=== PATIENT | male | born 1990 | race American Indian/Alaskan Native ===

== ENCOUNTER 2024-12-23 14:12 | Outpatient (AMB) | payer MEDICAID, BC, SELFPAY ==
[2024-12-23 14:47] VITALS: BP 122/81; PULSE 79; RESP 16; TEMP 36.6; O2SAT 98; BMI 32.3
--- NOTE | 2024-12-23 14:47 | PD.GSCLVISIT ---
[facility]ital Signs - [facility] 12/23/24 14:47 Height 1.78 m Height Method Measured Weight 102.143 kg Weight Measurement Method Standing Scale BMI 32.3 BP 122/81 Blood Pressure Source Automatic Cuff Blood Pressure Location Left Upper Arm Position Sitting Respiration 16 Pulse 79 Pulse Source Monitor Temp 97.8 F Temp Source Temporal Artery Scan Pulse Oximetry (%) 98 Oxygen Delivery Method Room Air Med/Allergies Allergies & Medications Allergies No Known Allergies Allergy (Verified 12/23/24 14:48) Medication Reconciliation No Known Home Medications 12/23/24 [History Confirmed 12/23/24] MA Intake Visit Data Collection New Patient or Established: Established Patient (seen at [facility] within 3 years) Seen by Clinical Staff ONLY (RN/MA): No Reason for Visit:: LUMP ON NECK Pain Present Currently: No Pain Scale Used: Guevara-Goodman/Numerical Spot Welder Body Assembly Required: No PCP or OBGYN visit in last 3 months: Yes Hx Now: No Do You Feel Safe at Home: Yes Authorities Contacted: N/A Smoking Status Smoking Status: Never smoker Immunization / Flu Flu Vaccine in the Last 12 Months: No Flu Vaccine Exclusion Criteria: No Exclusion Criteria Past Medical History Social History SMOKING STATUS: Smoking status: Never smoker HPI HPI Narrative 34M referred for right neck lesion. Pt reports he has noticed it for years and it has not grown in size but is somewhat bothersome. He has never had any drainage from the area and underwent an US which indicated the lesion was likely a benign cyst PMH: None PSHx: None Meds: None Allergies: NKDA Social hx: Nonsmoker ROS Review of Systems Systems Reviewed: All systems reviewed, normal except as documented Objective/Exam General General Appearance: alert, cooperative and well groomed Neck Neck exam: Present other (at the right lateral neck in the submandibular region there is a palpable, soft and mobile lesion approx 7x7mm, nontender) Resp Respiratory exam: Absent respiratory distress Assessment & Plan Diagnosis / Problem List (1) Sebaceous cyst: Status: Acute Assessment & Plan: 34M presenting with right neck lesion likely a sebaceous cyst which is bothersome. I advised pt I can perform excision in the OR and enumerated risks of bleeding, infection and cyst recurrence. All questions were answered and pt is agreeable with this plan Plan: Excision of right neck cyst in OR Office Procedures GNS Level of Care Nursing/Assessment Patient Status: Established Patient Nursing Assessment/Reassesment: Medication Reconciliation, Update PMH in EMR and Vital Signs Coordination of Care: Complex Care and Chronic Disease 1-5, Education Complex Pt/Fam, Consent,records obtained, informed consent, Results/Orders obtained and Staff clarify orders Established Patient Charge Established Patient Point Assignment: 95 Established Patient Point Charge: EP Level 3 (80-115) Patient Portal Questionaires Social History Tobacco History Smoking Status: Never smoker Domestic Abuse History Do You Feel Safe at Home: Yes Review of Systems Report any current symptoms Only answer those that you have currently: Past Medical History Past Medical History Have you ever been diagnosed with any of the following:
== END 2024-12-23 15:33 | disposition home or self-care (01) ==
PROVIDERS: PCP Family Medicine; Referring Provider Family Medicine; Supervising Provider Surgery; Visit Provider Surgery
DX: L72.3 Sebaceous cyst (principal)
CPT/HCPCS: 99213; G0463

== ENCOUNTER 2025-01-26 05:45 | Day surgery (SDC) | payer BC, MEDICAID, SELFPAY ==
[2025-01-21 07:28] VITALS: BMI 32.2
[2025-01-21 09:01] LABS: INR 1.0 (0.9-1.3); Partial Thromboplastin Time 26.2 Seconds (22.0-36.0); Prothrombin Time 10.6 Seconds (9.0-12.2)
[2025-01-21 09:10] LABS: Anion Gap 10 (7-16); BUN/Creatinine Ratio 11 Ratio (12-20); Blood Urea Nitrogen 13 mg/dL (9-23); Calcium 9.3 mg/dL (8.3-10.6); Carbon Dioxide 27.1 mMol/L (20.0-31.0); Chloride 106 mMol/L (98-107); Creatinine (Component) 1.2 mg/dL (0.6-1.3); Estimated Creatinine Clearance 104.7 mL/min (>60); Glucose 104 mg/dL (74-106); Osmolality,Calculated 285 (275-295); Potassium 4.4 mMol/L (3.4-5.1); Sodium 143 mMol/L (136-145); eGFR > 60 See Note
[2025-01-21 09:23] LABS: Basophils # (Auto) 0.0 Thou/mm3 (0.0-0.2); Basophils % (Auto) 1 % (0-2.5); Eosinophils # (Auto) 0.1 Thou/mm3 (0.0-0.5); Eosinophils % (Auto) 2 % (0-10); Hematocrit 38.8 % (41.0-53.0); Hemoglobin 13.0 g/dL (13.5-16.0); Immature Granulocytes Auto 0.02 Thou/mm3 (0.00-0.00); Lymphocytes # (Auto) 1.5 Thou/mm3 (1.0-4.8); Lymphocytes % (Auto) 25 % (10-50); Mean Corpuscular HGB Conc 33.5 g/dl (31.0-37.0); Mean Corpuscular Hemoglobin 27.5 pg (25.0-35.0); Mean Corpuscular Volume 82 fL (80-100); Monocytes # (Auto) 0.5 Thou/mm3 (0.0-0.8); Monocytes % (Auto) 8 % (0-12); Neutrophils # (Auto) 3.9 Thou/mm3 (1.8-7.7); Neutrophils % (Auto) 65 % (37-80); Nucleated Red Blood Cell # 0.00 Thou/mm3 (0.00-0.00); Nucleated Red Blood Cell % 0 /100 WBC (0); Platelet Count 290 Thou/mm3 (140-440); RDW Standard Deviation 37.9 fL (35.1-43.9); Red Blood Count 4.72 Miln/mm3 (4.50-5.90); White Blood Count 6.0 Thou/mm3 (3.8-10.6)
[2025-01-26 06:00] VITALS: BP 133/93; PULSE 79; RESP 20; TEMP 36.1; O2SAT 99; BMI 31.7
[2025-01-26 08:04] VITALS: BP 129/81; PULSE 74; RESP 20; TEMP 36.2; O2SAT 100
--- NOTE | 2025-01-26 08:04 | SUR.PHASEII ---
0804: Pt. wakes to name then drifts back to sleep, vitals stable, breasthing unlabored, no complaint of pain or nausea, dressing to right side of neck CDI, no active bleed noted, report received from Carlos A DANIELS and Ian GROSS.
[2025-01-26 08:09] VITALS: BP 126/78; PULSE 68; RESP 16; TEMP 36.2; O2SAT 99
--- NOTE | 2025-01-26 08:11 | ESOP_ITS ---
Date of Procedure 01/26/25 Pre Op Diagnosis Right submandibular sebaceous cyst Post Op Diagnosis Same Procedure Excision of right neck submandibular cyst Findings Right neck cyst containing sebum Procedure Description After discussion of risks and benefits, patient was brought to the operating room and received preoperative antibiotics and sedation. He was prepped and draped in the usual sterile fashion. After timeout the planned incision was infiltrated with half percent Marcaine. Anesthesia was confirmed using Adson forceps and incision was made with a #15 blade. There was return of sebaceous material which was thoroughly removed and the capsule of the cyst was removed in a piecemeal fashion. The wound was irrigated and hemostasis was achieved with electrocautery. The wound was closed in 2 layers with 2-0 Vicryl followed by 4- 0 Monocryl and reinforced with Dermabond. Patient received a total of 15 cc of half percent Marcaine. He was awoken and brought to PACU in stable condition Pathology / specimen Other (Right neck sebaceous cyst) Estimated Blood Loss 10 Surgeon Anabel Martin MD Surgical Staff Operation Date: 01/26/25 07:30 <No data on this case meets the specified criteria>
[2025-01-26 08:14] VITALS: BP 129/81; PULSE 79; RESP 17; TEMP 36.2; O2SAT 100
--- NOTE | 2025-01-26 08:14 | ESDS_ITS ---
Planned Discharge Date 01/26/25 DS: Providers Provider Primary care physician: Ike Lincoln MD Attending Provider on Admission: Anabel Martin MD Attending Provider on DC: Anabel Martin MD Discharging Provider: Anabel Martin MD Diagnosis Discharge Diagnosis (1) Sebaceous cyst: Status: Acute Problem List Completed Was Problem List Reviewed/Reconciled?: Yes Exam Vital Signs Temp Pulse Resp BP Pulse Ox O2 Flow Rate 97.1 F 74 20 129/81 100 4 01/26/25 08:04 01/26/25 08:04 01/26/25 08:04 01/26/25 08:04 01/26/25 08:04 01/26/25 08:04 Discharge Plan Plan Patient Disposition: HOME (Self Care) Prescriptions/Referrals Prescriptions/Med Rec: New tramadol 50 mg tablet 50 mg PO Q6H MDD 4 tabs PRN (Reason: pain) Qty: 10 0RF Rx Instructions: Take 1 tablet as needed every 6 hours for moderate to severe pain Referrals: Ike Lincoln MD [Primary Care Provider, Family Practice] Anabel Martin MD [Physician, General Surgery] Referral Note: You will receive a message to confirm a follow-up appt with me in 2 weeks Patient/Caregiver Discharge Instructions Other Discharge Activity Instructions:: Avoid getting the incision wet for 2 days, until 01/28/25 At that time it is ok to cleanse the area with soap and water, pat dry after If you develop redness, drainage, fever or severe pain please seek care in ER Education Materials: Anesthesia MAC, Preventing Surgical Site Infections, Skin Adhesive Wound Care Instructions, [facility] General SDC Instructions- Cook Islander Print Language: Cook Islander Stand Alone Forms: Holly Award Info., Patient Portal Info Letter Discharge Order Discharge Orders: Discharge (Routine); Ordered 01/26/25 Ordered By: Anabel Martin PROCEDURES: Procedures Excision of right neck submandibular cyst
[2025-01-26 08:19] VITALS: BP 126/86; PULSE 81; RESP 15; TEMP 36.6; O2SAT 97
[2025-01-26 08:34] VITALS: BP 133/83; PULSE 78; RESP 16; TEMP 36.6; O2SAT 97
--- NOTE | 2025-01-26 08:45 | SUR.PHASEII ---
0845: Pt. AAOx4, vitals stable, breathing unlabored, no complaint of pain or nausea, dressing to right side of neck CDI, no active bleed noted, pt. tolerated sips of water well, pt. ambulated to wheelchair with steady gait and no assist, no complications. Gave discharge instructions to the pt. and his ride, both verbalized understanding and had no further questions. Pt. left with all personal belongings.
== END 2025-01-26 08:45 | disposition home or self-care (01) ==
PROVIDERS: PCP Family Medicine; Referring Provider Surgery; Visit Provider Surgery
PROC: (CPT 11423; principal; 2025-01-26 07:30)
DX: L72.3 Sebaceous cyst (principal)
CPT/HCPCS: 11423; 12041; 36415; 80048; 85025; 85610; 85730; A4649; J0131; J0690; J2250; J2704; J3010; J3490

== ENCOUNTER 2025-02-04 23:45 | Emergency (ER) | payer BC, MEDICAID, SELFPAY ==
[2025-02-04 23:46] VITALS: BMI 31.5
[2025-02-04 23:53] VITALS: BP 148/92; PULSE 90; RESP 17; TEMP 36.9; O2SAT 96
--- NOTE | 2025-02-05 | EDNOTE_ITS ---
ED Wound/Laceration-RME/HPI General Chief Complaint: Wound/Laceration Stated Complaint: SURGICAL WOULD OPENING Time Seen by Provider: 02/05/25 00:16 Arrival date/time: 02/04/25 23:45 RME / HPI RME / HPI narrative: See [facility] for Dr. Silva's HPI Documentation. Related Data Previous Rx's ?Medication ?Instructions ?Recorded tramadol 50 mg tablet 50 mg PO Q6H PRN pain #10 ta bs 01/26/25 Allergies Allergy/AdvReac Type Severity Reaction Status Date / Time No Known Allergies Allergy Verified 02/04/25 23:46 Review of Systems Review of Systems Systems Reviewed: All systems reviewed, normal except as documented ED Exam Narrative Physical exam: See [facility] for Dr. Silva's Physical Exam Documentation. Course Quality Measures none Vital Signs Vital signs: Vital Signs Temperature 98.5 F 02/04/25 23:53 Pulse Rate 90 02/04/25 23:53 Respiratory Rate 17 02/04/25 23:53 Blood Pressure 148/92 H 02/04/25 23:53 Pulse Oximetry (%) 96 02/04/25 23:53 Oxygen Delivery Method Room Air 02/04/25 23:53 Wound / Laceration [facility] Narrative [facility] Narrative:: This section includes all my notes and documentations, including HPI, PE, and ED course. Vaughn Silva MD HPI: 34 y/o male presents with possible opening of surgical wound. About 10 days ago, right sided neck mass was surgically removed. No redness. No fever. No other complaints. ROS: All negative except as documented in HPI. Physical Exam: General: Alert and oriented. No acute distress when remaining still. Eyes: Conjunctivae and lids clear. ENT: No nasal congestion. Neck: Supple. Monroe sized scabbing noted in the right aspect. No dehiscence noted. Lungs: No respiratory distress. Skin: Warm and dry. Neuro: Alert and oriented X 3. At this point, diagnoses include: Visit for Wound Check Recommended outpatient care. Based on my best medical judgment, made decision no further evaluation or treatment indicated at this time. Patient understands and agrees to the discharge instructions customized and printed, see below. Discharge Instructions from Dr. Silva printed for you: 1. After evaluation, there is no infection or dehiscence (opening up of the wound) in your right neck. 2. Try not to remove the scabbing before it comes off spontaneously. You can apply Band-Aids (not the tape) over the scabbing. The skin takes about a month to completely heal. 3. Continue care with your surgeon who performed the surgery. 4. Seek immediate medical care with worsening or with any concerns. Vaughn Silva MD Patient data External records reviewed:: [facility] previous records (No prior ED records available for review.) Clinical information provided by:: patient Social determinants that could affect healthcare access:: none Patient has the following chronic illnesses:: None reported How is presenting disease/condition affected by chronic disease/condition?: no chronic disease Evaluation data The following diagnostics were reviewed and interpreted by me:: other (specify) (N/A) Lab and/or radiology exams considered but not ordered:: None Interpretation Summary: N/A Medications / Prescriptions Medications or Prescriptions considered but not ordered:: None Medication administrations:: None Consultations Consultation(s) initiated? (list below): No Diagnosis Wound Differential Diagnosis: laceration, abscess, abrasion and avulsion of skin Most likely diagnosis given after review of the tests above:: Visit for Wound Check Admission Indicated Admission indicated?: not indicated Explain why admission is indicated or not indicated:: With no condition needing emergent intervention, there was no indication for admission. Admission Request Was there a request for admission?: No Disposition Plan Disposition Plan: Discharge Discharge Attestation Discharge Attestation: The patient and all family members were given an opportunity to ask questions and understood the discharge instructions. Discharge instructions specifically effects, indications for sooner follow up or return to the emergency department, and the expected course of current diagnosis. Patient condition: Stable Discharge Plan Plan Patient Disposition: HOME (Self Care) Prescriptions/Referrals Prescriptions/Med Rec: No Action tramadol 50 mg tablet 50 mg PO Q6H MDD 4 tabs PRN (Reason: pain) Qty: 10 0RF Rx Instructions: Take 1 tablet as needed every 6 hours for moderate to severe pain Problem List Clinical Impression: Visit for wound check Patient/Caregiver Discharge Instructions Discharge Activity: activity as tolerated Education Materials: ED Wound Check (No Infection) Additional Instructions: Discharge Instructions from Dr. Silva printed for you: 1. After evaluation, there is no infection or dehiscence (opening up of the wound) in your right neck. 2. Try not to remove the scabbing before it comes off spontaneously. You can apply Band-Aids (not the tape) over the scabbing. The skin takes about a month to completely heal. 3. Continue care with your surgeon who performed the surgery. 4. Seek immediate medical care with worsening or with any concerns. Print Language: Maltese Stand Alone Forms: Holly Award Info., Patient Portal Info Letter
== END 2025-02-05 00:30 | disposition home or self-care (01) ==
LOC: SERX 02-05 00:58
PROVIDERS: Emergency Provider Emergency Medicine; PCP Family Medicine
DX: Z48.00 Encounter for change or removal of nonsurgical wound dressing (principal)
CPT/HCPCS: 99281

== ENCOUNTER 2025-02-10 11:05 | Outpatient (AMB) | payer MEDICAID, BC, SELFPAY ==
--- NOTE | 2025-02-10 11:06 | PD.GSCLVISIT ---
Vital Signs - [facility] 02/10/25 12:57 Height 1.78 m Height Method Stated Weight 101.746 kg Weight Measurement Method Standing Scale BMI 32.1 BP 128/82 Blood Pressure Source Automatic Cuff Blood Pressure Location Left Upper Arm Position Sitting Respiration 18 Pulse 75 Pulse Source Monitor Temp 97.5 F Temp Source Temporal Artery Scan Pulse Oximetry (%) 98 Oxygen Delivery Method Room Air Med/Allergies Allergies & Medications Allergies No Known Allergies Allergy (Verified 02/10/25 12:58) Medication Reconciliation tramadol 50 mg tablet 50 mg PO Q6H PRN pain #10 tabs 01/26/25 [Rx Confirmed 02/10/25] MA Intake Visit Data Collection New Patient or Established: Established Patient (seen at [facility] within 3 years) Seen by Clinical Staff ONLY (RN/MA): No Reason for Visit:: LUMP ON NECK Pain Present Currently: No Pain Scale Used: Guevara-Goodman/Numerical Payroll Secretary Required: No PCP or OBGYN visit in last 3 months: Yes Hx Now: No Do You Feel Safe at Home: Yes Authorities Contacted: N/A Smoking Status Smoking Status: Never smoker Immunization / Flu Flu Vaccine in the Last 12 Months: No Flu Vaccine Exclusion Criteria: No Exclusion Criteria Past Medical History Past Medical History NEUROLOGIC: Negative Neurological Disorders or Seizures CARDIAC: Negative Cardiac Disorders or Congestive Heart Failure RESPIRATORY: Negative Chronic Obstructive Pulmonary Disease (COPD) GASTROINTESTINAL: Negative Gastrointestinal Disorders or Hepatitis GENITOURINARY: Negative Genitourinary Disorders or Renal Disease ENDOCRINE: Negative Endocrine Disorders, Diabetes Mellitus Type 1 or Diabetes Mellitus Type 2 HEMATOLOGIC: Negative Blood Disorders OTHER HISTORY: Negative Hospitalization, Autoimmune Disease, Shingles, Blood Transfusions, Anesthesia Reactions or Cancer Family History FAMILY HISTORY: Positive Family Cardiac Disorders; Negative Family Psychiatric Problems, Family Respiratory Disorders, Family Gastrointestinal Problems, Family Cancer, Family Surgery or Family Anesthesia Reaction Social History SMOKING STATUS: Smoking status: Never smoker ALCOHOL: Alcohol Intake: Current HOUSING: Housing: House [facility] Narrative 34M here for follow up of R submandibular cyst excision performed on 01/26. Pt reports feeling very well with no pain and no concerns regarding the incision. He did seek care in ER on POD 10 to evaluate the wound because of an eschar in the area but was discharged home and states the concern has resolved ROS Review of Systems Systems Reviewed: All systems reviewed, normal except as documented Objective/Exam General General Appearance: alert, cooperative and well groomed Neck Neck exam: Present other (right submandibular incision healing well with no erythema, no fluctuance or tenderness) Resp Respiratory exam: Absent respiratory distress Assessment & Plan Diagnosis / Problem List (1) Sebaceous cyst: Status: Acute Assessment & Plan: 34M now s/p excision of right neck sebaceous cyst 01/26, recovering well Plan: Follow up as needed Office Procedures GNS Level of Care Nursing/Assessment Patient Status: Established Patient Nursing Assessment/Reassesment: Medication Reconciliation, Update PMH in EMR and Vital Signs Coordination of Care: Complex Care and Chronic Disease 1-5, Consent,records obtained, informed consent, Education Simp Pt/Fam, Results/Orders obtained and Staff clarify orders Established Patient Charge Established Patient Point Assignment: 90 Established Patient Point Charge: EP Level 3 (80-115) Patient Portal Questionaires Social History Living Situation History Housing: House Tobacco History Smoking Status: Never smoker Alcohol History Alcohol Intake: Current Domestic Abuse History Do You Feel Safe at Home: Yes Review of Systems Report any current symptoms Only answer those that you have currently: Past Medical History Past Medical History Have you ever been diagnosed with any of the following: Neurological Problems Seizures: No Cardiology Problems Congestive Heart Failure: No Respiratory Problems Chronic Obstructive Pulmonary Disease (COPD): No Stomache/Intestinal Problems Hepatitis: No Genital/Urinary Problems Renal Disease: No Endocrine Problems Diabetes Mellitus Type 1: No Diabetes Mellitus Type 2: No Other Problems Hospitalization: No Autoimmune Disease: No Shingles: No Blood Transfusions: No Anesthesia Reactions: No Cancer: No
[2025-02-10 12:57] VITALS: BP 128/82; PULSE 75; RESP 18; TEMP 36.4; O2SAT 98; BMI 32.1
== END 2025-02-10 11:24 | disposition home or self-care (01) ==
LOC: HODSRG 11:05
PROVIDERS: PCP Family Medicine; Referring Provider Family Medicine; Supervising Provider Surgery; Visit Provider Surgery
DX: Z48.817 Encounter for surgical aftercare following surgery on the skin and subcutaneous tissue (principal)
CPT/HCPCS: 99213; G0463